=== PATIENT | male | born 1945 | race Caucasian/White ===

== ENCOUNTER 2018-04-18 07:33 | Day surgery (SDC) | payer MEDICARE, OTHER ==
[2018-04-17 16:10] LABS: BASOPHILS % (AUTO) 0.6 % (0-1); EOSINOPHILS # (AUTO) 0.2 X10'3 (0-0.9); LYMPHOCYTES # (AUTO) 1.1 X10'3 (1.1-4.8); LYMPHOCYTES % (AUTO) 17.4 % (21-51); MEAN CORPUSCULAR HEMOGLOBIN 32.2 PG (27.0-31.0); MEAN CORPUSCULAR HGB CONC 34.2 % (33.0-36.5); MEAN CORPUSCULAR VOLUME 94.2 FL (78-98); MEAN PLATELET VOLUME 7.1 FL (7.4-10.4); MONOCYTES # (AUTO) 0.5 X10'3 (0-0.9); MONOCYTES % (AUTO) 8.4 % (2-12); NEUTROPHILS # (AUTO) 4.5 X10'3 (1.8-7.7); NEUTROPHILS % (AUTO) 70.6 % (42-75); PRE OP HEMATOCRIT 46.7 % (42.0-52.0); PRE OP PLATELET COUNT 267 X10'3 (140-440); RED BLOOD COUNT 4.96 X10'6 (4.70-6.10); RED CELL DISTRIBUTION WIDTH 13.7 % (11.5-14.5)
[2018-04-17 16:17] LABS: CLARITY,URINE CLEAR (Clear); COLOR,URINE YELLOW (Yellow); GLUCOSE, URINE NEGATIVE (Neg); KETONES,URINE NEGATIVE (Neg); LEUKOCYTE ESTERASE ,URINE NEGATIVE (Neg); NITRITES, URINE NEGATIVE (Neg); OCCULT BLOOD,URINE TRACE-INTACT (Neg); PROTEIN,URINE NEGATIVE (Neg); UROBILINOGEN,URINE 0.2 E.U/dL (0.2-1.0)
[2018-04-17 16:18] LABS: UA COLLECTION TYPE CLN CATCH MIDSTREAM
[2018-04-17 16:23] LABS: RBC,URINE 0-2 /HPF (0-2); WBC,URINE 0-4 /HPF (0-4)
[2018-04-17 16:24] LABS: BACTERIA,URINE NONE SEEN /HPF (Neg); MUCUS STRANDS FEW /LPF (Neg); SQUAMOUS EPITHELIAL CELL,UR FEW /LPF (FEW)
[2018-04-17 16:25] LABS: ALBUMIN 3.8 G/DL (3.4-5.0); ALBUMIN/GLOBULIN RATIO 1.2 (1.1-1.5); ALKALINE PHOSPHATASE 99 IU/L (46-116); BLOOD UREA NITROGEN 18 MG/DL (7-18); BUN/CREATININE RATIO 18.6 (5.4-32.0); CALCIUM 9.3 MG/DL (8.5-10.1); CHLORIDE 109 MMOL/L (99-107); CREATININE 0.97 MG/DL (0.60-1.10); PRE OP ALT 36 U/L (30-65); PRE OP ANION GAP 9 (8-16); PRE OP AST 20 U/L (10-37); PRE OP BILIRUB, TOTAL 0.4 MG/DL (0.0-1.0); PRE OP GLUCOSE 72 MG/DL (70-104); PRE OP POTASSIUM 3.9 MMOL/L (3.4-5.1); PRE OP SODIUM 145 MMOL/L (135-145); TOTAL CARBON DIOXIDE 27.5 MMOL/L (24-32); TOTAL PROTEIN 7.1 G/DL (6.4-8.2); eGFR 76 ML/MIN
[2018-04-18] VITALS (15 sets, daily range): BP systolic 106–159; BP diastolic 60–95
[~2018-04-18] VITALS: Ht 175.3 cm; Wt 79.4 kg
[~2018-04-18 07:33] MED LIST: Cefazolin 2GM/50ML dext iso,osmotic IVPB IV ONE; ZOLP10TA5 PO; famotidine 20mg tablet PO ONE; ringers solution, lacted 1,000 ML IV SCH
[2018-04-18] MEDS ORDERED: aprepitant 40mg capsule PO ONE (08:18)
[2018-04-18] MEDS ORDERED: fentaNYL /PF 50mcg/ml 5ml ampule ONE (08:31)
[2018-04-18] MEDS ORDERED: midazolam 2 mg/2 ml injection ONE ×2 (08:31→11:47)
[2018-04-18] MEDS ORDERED: dexamethasone sod phosphate 4mg/ml inj. ONE (08:32)
[2018-04-18] MEDS ORDERED: propofol inj 20 ML IV ONE ×2 (08:32→11:56)
[2018-04-18] MEDS ORDERED: LIDOcaine 1%/PF 5ML 10 MG/ML VIAL ONE ×2 (08:32→11:56)
[2018-04-18] MEDS ORDERED: glycopyrrolate 0.2mg/ml inj ONE (10:08)
[2018-04-18] MEDS ORDERED: ondansetron/PF 4mg/2ml inj ONE ×3 (10:09→11:56)
[2018-04-18] MEDS ORDERED: BUPIVAcaine/PF 2.5mg/ml (0.25%) 10ml vial ONE (10:58)
[2018-04-18] MEDS ORDERED: ROPIVAcaine 0.5% (5mg/ml) 30ml vial ONE (11:20)
[2018-04-18] MEDS ORDERED: sevoflurane 250ml liquid IH ONE (11:45)
[2018-04-18] MEDS ORDERED: fentaNYL/PF 50MCG/1 ML 2ML syringe ONE (11:47)
[2018-04-18] MEDS ORDERED: ketorolac trometh. 30mg/ml inj. ONE (12:35)
[2018-04-18] MEDS ORDERED: bacitracin 15gm ointment TP ONE (12:38)
[2018-04-18] MEDS ORDERED: acetaminophen 1,000mg/100ml IV 100 ML IV ONE (13:15)
[2018-04-18] MEDS ORDERED: meperidine/PF 25mg/ml syringe ONE (13:22)
[2018-04-18] MEDS ORDERED: ringers solution, lacted 1,000 ML IV SCH (13:49)
[2018-04-18] MEDS ORDERED: meperidine/PF 25mg/ml syringe IV PRN ×3 (13:50)
[2018-04-18] MEDS ORDERED: ondansetron/PF 4mg/2ml inj IV PRN (13:50)
[2018-04-18] MEDS ORDERED: proCHLORperazine 10 MG/2 ml inj IV PRN (13:50)
[2018-04-18] MEDS ORDERED: morphine 4 MG/ML inj SYRINge IV PRN ×2 (13:50)
== END 2018-04-18 15:48 | disposition home or self-care (01) ==
LOC: PAS 07:33
PROVIDERS: ATTEND Surgery
DX: K40.90 Unilateral inguinal hernia, without obstruction or gangrene, not specified as recurrent (principal); L91.8 Other hypertrophic disorders of the skin; K21.9 Gastro-esophageal reflux disease without esophagitis; M19.90 Unspecified osteoarthritis, unspecified site; Z85.828 Personal history of other malignant neoplasm of skin; Z96.641 Presence of right artificial hip joint; Z98.890 Other specified postprocedural states; Z79.899 Other long term (current) drug therapy; Z82.0 Family history of epilepsy and other diseases of the nervous system
CPT/HCPCS: 11200; 36415; 49650; 80053; 81001; 85025; 93005; A4315; A6258; C1781; J0131; J0690; J1100; J1885; J2001; J2175; J2250; J2405; J2704; J2795; J3010; J3490; J7120; J8501; 88305

== ENCOUNTER 2021-02-22 08:30 | Emergency (ER) | payer MEDICARE, OTHER ==
[~2021-02-22] VITALS: Ht 177.8 cm; Wt 85.8 kg
[~2021-02-22 08:30] MED LIST changes: -Cefazolin 2GM/50ML dext iso,osmotic IVPB IV ONE; -famotidine 20mg tablet PO ONE; -ringers solution, lacted 1,000 ML IV SCH
[2021-02-22 09:21] LABS: BASOPHILS # (AUTO) 0.1 X10'3 (0-0.2); BASOPHILS % (AUTO) 0.7 % (0-1); EOSINOPHILS # (AUTO) 0.1 X10'3 (0-0.9); EOSINOPHILS % (AUTO) 0.9 % (0-6); HEMATOCRIT 48.4 % (42.0-52.0); HEMOGLOBIN 16.2 g/dl (14.0-17.9); LYMPHOCYTES # (AUTO) 0.9 X10'3 (1.1-4.8); LYMPHOCYTES % (AUTO) 11.6 % (21-51); MEAN CORPUSCULAR HGB CONC 33.6 g/dL (33.0-36.5); MEAN CORPUSCULAR VOLUME 95.2 FL (78-98); MEAN PLATELET VOLUME 7.1 FL (7.4-10.4); MONOCYTES # (AUTO) 0.7 X10'3 (0-0.9); MONOCYTES % (AUTO) 9.2 % (2-12); NEUTROPHILS % (AUTO) 77.6 % (42-75); PLATELET COUNT 245 X10'3 (140-440); RED BLOOD COUNT 5.08 X10'6 (4.70-6.10); RED CELL DISTRIBUTION WIDTH 13.8 % (11.5-14.5); WHITE BLOOD COUNT 7.8 X10'3 (4.5-11.0)
[2021-02-22 09:51] LABS: ALANINE AMINOTRANSFERASE 34 U/L (12-78); ALBUMIN 3.7 G/DL (3.4-5.0); ALKALINE PHOSPHATASE 79 IU/L (46-116); ANION GAP 8 (8-16); ASPARTATE AMINO TRANSFERASE 18 U/L (10-37); BILIRUBIN,TOTAL 0.8 MG/DL (0.1-1.0); BLOOD UREA NITROGEN 22 MG/DL (7-18); BUN/CREATININE RATIO 21.4 (5.4-32.0); CHLORIDE 106 MMOL/L (99-107); CREATININE 1.03 MG/DL (0.60-1.10); GLUCOSE 97 MG/DL (70-104); LIPASE < 50 U/L (73-393); POTASSIUM 4.4 MMOL/L (3.5-5.1); SODIUM 141 MMOL/L (135-145); TOTAL CARBON DIOXIDE 26.8 MMOL/L (24-32); TOTAL PROTEIN 7.5 G/DL (6.4-8.2); eGFR 70 ML/MIN
[2021-02-22 11:14] VITALS: BP 131/64
[2021-02-22 11:23] LABS: CLARITY,URINE CLEAR (Clear); COLOR,URINE YELLOW (Yellow); GLUCOSE, URINE NEGATIVE (Neg); KETONES,URINE NEGATIVE (Neg); LEUKOCYTE ESTERASE ,URINE TRACE (Neg); NITRITES, URINE NEGATIVE (Neg); OCCULT BLOOD,URINE TRACE-INTACT (Neg); PH,URINE 5.5 (4.8-8.0); PROTEIN,URINE NEGATIVE (Neg); UROBILINOGEN,URINE 0.2 E.U/dL (0.2-1.0)
[2021-02-22 11:24] LABS: UA COLLECTION TYPE VOIDED
[2021-02-22 11:29] LABS: MUCUS STRANDS MODERATE /LPF (Neg); SQUAMOUS EPITHELIAL CELL,UR FEW /LPF (FEW)
[2021-02-22 11:30] LABS: BACTERIA,URINE FEW /HPF (Neg); RBC,URINE 0-2 /HPF (0-2)
[2021-02-22] MEDS ORDERED: CIPR-260 PO (12:31)
== END 2021-02-22 12:42 | disposition home or self-care (01) ==
LOC: ER 08:31
DX: N39.0 Urinary tract infection, site not specified (principal); R10.31 Right lower quadrant pain; R10.32 Left lower quadrant pain; Z72.89 Other problems related to lifestyle; Z79.2 Long term (current) use of antibiotics; Z79.899 Other long term (current) drug therapy
CPT/HCPCS: 36415; 80053; 81001; 83690; 85025; 87088; 99283